=== PATIENT | male | born 1930 | race Caucasian/White ===

== ENCOUNTER → 2016-04-13 | Outpatient (CLI) | payer OTHER ==
--- NOTE | 2016-04-13 19:10 | DX ---
DEXA Bone Mineral Densitometry Indication: 86-year-old man with history of low bone mineral density. The patient currently takes o steoporosis medication. Technique: Bone Mineral Densitometry (BMD) by Dual Energy X-Ray Absorptiometry (DEXA) was performed utilizing the kwiry scanner. The lumbar spine was evaluated in the AP projection. The bilat eral hips and right forearm were evaluated in the AP projection. Vertebral fracture assessment was a lso performed. Comparison: September 12, 2013. AP Lumbar Spine: The L1, L2, L3, and L4 vertebral bodies were evaluated. BMD: 1.444 gm/cm2. T-score: 1.7 SD. Z-score: 2.5 SD. Increased density. AP Left Hip: Total BMD: 0.950 gm/cm2. T-score: -1.1 SD. Z-score: 0.3 SD. Increased density. AP Right Hip: Total BMD: 0.982 gm/cm2. T-score: -0.8 SD. Z-score: 0.5 SD. Increased density. AP Right Forearm, 03/23: BMD: 1.007 gm/cm2. T-score: 0.2 SD. Z-score: 1.5 SD. No change. Vertebral Fracture Assessment: No significant fracture deformity .Degenerative disk and facet arthr opathy artificially increases the BMD measurement in the lumbar spine. Conclusion: Improved bone mineral density in bilateral hips and lumbar spine since 2013. Based on t he lowest density in the left hip, the patient remains in the low bone mineral density (osteopenic) r ambar. The ten year risk for any major osteoporotic fracture is 9.7% and for a hip fracture is 3.4%. Any bone loss in this patient is probably related to aging or hormone deficiency. To prevent osteoporosis and to promote bone density, consider the following recommendations: 1. Pursue a regular regimen of weightbearing and muscle-strengthening exercises in order to reduce t he risk of falls and fracture (as tolerated by the patient's general medical condition). 2. Ensure that total daily dietary calcium intake is maximized. 3. Check serum hydroxy vitamin D3 (normal >30ng/ml). 4. Ensure daily intake of vitamin D is 800 international units. 5. Consider follow up DEXA scan in two years to assess the rate of bone loss in this patient. 6. Consider excluding common secondary causes of bone loss. Laboratory evaluation might include CBC , TSH, calcium, phosphorous, albumin, creatinine, alkaline phosphatase, PTH, serum, electrophoresis ( SPEP or UPEP), antitissue transglutaminase antibody levels (celiac disease), and hydroxy vitamin D3, as well as a 24-hour urine calcium. E:amm
== END ==
LOC: FIMAGING 14:48
PROVIDERS: ATTEND Internal Medicine
DX: Z13.820 Encounter for screening for osteoporosis (principal); M85.80 Other specified disorders of bone density and structure, unspecified site; M51.36 Other intervertebral disc degeneration, lumbar region; M12.88 Other specific arthropathies, not elsewhere classified, other specified site

== ENCOUNTER → 2016-07-13 | Outpatient (CLI) | payer OTHER | LOC: FCPNEURO 21:00 | PROVIDERS: ATTEND Psychiatry & Neurology Sleep Medicine | DX: G47.33 Obstructive sleep apnea (adult) (pediatric) (principal) ==

== ENCOUNTER → 2017-08-20 | Outpatient (CLI) | payer OTHER | LOC: FCPNEURO 20:00 | PROVIDERS: ATTEND Psychiatry & Neurology Sleep Medicine | DX: Z46.89 Encounter for fitting and adjustment of other specified devices (principal); G47.33 Obstructive sleep apnea (adult) (pediatric); G47.61 Periodic limb movement disorder ==

== ENCOUNTER → 2018-05-06 | Outpatient (CLI) | payer OTHER | LOC: FCPNEURO 20:00 ==

== ENCOUNTER 2018-06-15 21:01 | Inpatient (IN) | payer OTHER ==
--- NOTE | 2018-06-15 21:33 | EDPHY ---
General Time Seen by Provider: 06/15/18 21:32 Narrative: CLINICAL IMPRESSION: Multiple contusions, multiple rib fractures, multiple compression fractures, multiple transverse process fractures, left forearm laceration, right hand skin tear ASSESSMENT/PLAN: Patient is an 88-year-old male who is present with his , lives independently at [facility] with a history of pulmonary fibrosis, spinal stenosis with neuropathy, chronic bowel and bladder incontinence, atrial fibrillation on Pradaxa, depression and mild cognitive impairment presents to the emergency department after sustaining multiple mechanical falls complaining of rib pain, forearm laceration and left hand skin tear. Patient arrived by ambulance, he is not toxic appearing and in no acute distress. His lungs were clear to auscultation, physical examination reveals large area of ecchymosis on the left posterior thorax, ecchymosis of right flank extending into the abdomen , 3 cm left forearm laceration and right hand skin tear. Chest abdomen and pelvis CT were performed which revealed posterior 11th and 12th rib fractures of the left side, right 10th rib fracture, nondisplaced fracture of the left transverse processes of L1 and L2 and both transverse process of L3; mild anterior wedge compression deformity of T12 and L5. History and physical examination is consistent with multiple acute rib fractures , multiple compression and transverse process fractures with question of acute versus subacute (baseline pain/unchanged), left forearm laceration and right hand skin tear. His laceration was repaired as discussed in the procedure note. Lidocaine patches were placed in the emergency department, patient declined any need for narcotic pain medication. Patient will be admitted for further observation and pain management, I spoke directly with Dr. Mckay and Dr. Pires. The patient will be admitted to the hospitalist service with trauma consultation. He remained hemodynamically stable prior tp transfer to the floor. DIFFERENTIAL DX: Differential diagnosis including but not limited to thoracic trauma, intra- abdominal trauma, long bone injury, laceration, compartment syndrome, neurovascular compromise ED PROCEDURES: Laceration Repair Verbal consent obtained by patient. Risks discussed, including but not limited to infection, pain, retained foreign body, need for additional repair, poor cosmetic result, tendon damage, nerve damage, poor wound healing, vascular damage. Alternatives to repair discussed. [place] protocol used to establish correct patient, procedure, equipment, logistics support, and site. Anesthesia obtained by local infiltration. Anesthetized with 1% lidocaine with epinephrine. Laceration 1.: Left forearm, 3 cm in length, 5 mm deep. Skin tear 2.5 cm superficially on the dorsum of the right hand. Repair type simple. Patient was prepped and draped in usual sterile fashion. Hemostasis achieved with direct pressure. Wound explored through full range of motion and entire depth of wound probed and visualized with gloved finger. No suspicion for nerve damage, tendon damage, underlying fracture, vascular damage, foreign body, or contamination. Area was cleansed with Shur-Clens and irrigated with sterile saline as per protocol. No foreign body or material removed. Repair method 5.0 Prolene interrupted. The skin tear was reapproximated and secured with Steri-Strips. 8 sutures placed. Well aligned, closely approximated. wound was dressed with sterile dressing. Patient tolerated well with no immediate complications. Wound care: Clean and dry x 24 hours, gently clean with soap and water, cover with topical antibiotic ointment/bandage. Suture/Staple removal: 7-10 Days ED COURSE: 5: Case discussed with Dr. Jackson 2312: Case discussed with radiologist Dr. Zamudio. Patient with multiple positive findings including left 11th and 12th posterior rib fractures, right 10th rib fracture as well as T12 and L5 increase in appearance of compression fractures. There is some stranding along the right abdomen consistent with area of right 10th rib fracture, no other intra-abdominal traumatic findings. 0023: Dr. Leblanc discussed case with Dr. Mckay, appropriate for medicine admit and Trauma consultation. CHIEF COMPLAINT: Left forearm laceration, left hand skin tear HPI: Patient is an 88-year-old male who is present with his , lives independently at [facility] with a history of pulmonary fibrosis, spinal stenosis with neuropathy, chronic bowel and bladder incontinence, atrial fibrillation on Pradaxa, depression and mild cognitive impairment presents to the emergency department after sustaining a mechanical fall with laceration to his forearm and skin tear to his right hand. Patient and endorse increasing falls over the last several months, recently transitioned to [facility] independent living from their home secondary to increased falls. Patient was using his walker this evening when he lost his balance causing him to fall backwards, he hit his arm on the door and landed onto his buttocks. Patient denies hitting his head, there was no loss of consciousness. He denies any neck pain. does report frequent falls, last fall 4 days ago where he was not seen or evaluated for any reason. At that time he hit his back and right flank during his fall, limited mobility throughout the week secondary to his pain. He reports that his pain is getting better however he does have some significant bruising. Patient has longstanding back pain secondary to spinal stenosis, denies any new or change in his back pain. He endorses chronic bowel and bladder incontinence which is unchanged. Denies any urinary tension, saddle paresthesia or focal weakness. Patient complains only of left forearm pain at the site of his laceration. Patient also endorse recent MRSA infection of his left lower extremity which is followed by infectious disease, nearly finished with antibiotic therapy. No wound concerns. PMH: Pulmonary fibrosis, spinal stenosis, atrial fibrillation Family History: Noncontributory Social History: Denies alcohol, illicit drug use or smoking REVIEW OF SYSTEMS: All other systems negative Constitutional: No fever, no chills, appetite change. Eyes: No discharge, vision change ENT: No sore throat, congestion, ear pain. Cardiovascular: No chest pain, no palpitations. Respiratory: No cough, no shortness of breath. Gastrointestinal: No abdominal pain, no vomiting, diarrhea. Genitourinary: No hematuria, dysuria, flank pain. Musculoskeletal: Bilateral posterior rib pain, right flank pain, Chronic back pain, chronic leg pain Skin: Abrasions, bruising, laceration. Healing wound left lower extremity. Neurological: No headache, dizziness, weakness. PHYSICAL EXAM: General Appearance: Alert, elderly, not toxic-appearing. HENT: Normocephalic, atraumatic. Bilateral external ears are normal. Bilateral tympanic membranes are normal with pearly hurtado reflex. Nares are clear, mucosa is pink. Oropharynx is clear, uvula is midline. There is no tonsillar enlargement or exudate. The dentition is normal. Eyes: PERRLA, EOMI intact. Conjunctiva pink, no pallor or injection. Neck: Supple, nontender, no lymphadenopathy, no midline pain, FROM. Back: No step-off, palpable bony abnormality. Patient with large area of ecchymosis left lateral thoracic region with multiple central abrasions. Patient with tenderness to palpation along the inferior ribs. Patient with mild generalized midline lumbar tenderness to palpation, no step-off or deformity. Patient reports his pain is at his baseline. Limited range of motion secondary to pain. 5/5 and equal strength of the UEs bilaterally including shoulder shrug; LLE mildly weak in comparison. Pulses: 2+ and equal radial, DP and PT pulses bilaterally. Sensation intact and symmetric to light touch from face, UEs and LEs bilaterally. Respiratory: There are no retractions, lungs are clear to auscultation. Cardiac: Regular rate, no murmurs or gallops. Gastrointestinal: Large area of ecchymosis extending right upper quadrant into flank various stages of healing. His abdomen is soft, nontender to palpation. Bowel sounds are present. There are no masses or hernias appreciated. No focal peritoneal findings. Neurological: Alert and oriented x 3, CN 2-12 grossly intact, mild resting tremor, mild diminished strength LLE Skin: Warm, dry. Musculoskeletal: Extremities are symmetrical, full range of motion, no tenderness, deformity, swelling, or erythema. Psychiatric: Patient is oriented X 3, there is no agitation. MEDICAL DECISION MAKING: Patient was seen independently. Secondary supervising physician at time of evaluation was Dr. Jackson and Dr. Leblanc. Diagnosis: Fall, left forearm laceration, right hand skin tear, multiple closed rib fractures, multiple compression fractures, multiple transverse process fractures. New, requires workup Summary: See Assessment and Plan for summary of ED visit Clinical lab tests: ordered / reviewed. Independent visualization of images, tracing, or specimens: Yes. Decision to obtain medical records or history from someone other than the patient: Yes, Review / Summarize previous medical records: Yes Discussed patient with another provider: Yes, Dr. Jackson, Dr. Leblanc, Dr. Mckay, Dr. Yap Patient Progress: Stable, admit. - Diagnostics Imaging Results: Imaging Impressions Abdomen CT 06/15/18 22:01 Impression: 1. Nondisplaced fracture of the left transverse processes of L1 and L2 and both transverse process of L3. No evidence for retroperitoneal hematoma. 2. Mild anterior wedge compression deformity of T12 and L5 new over the interval from 2016 but have a more chronic appearance as above. 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 3. Left posterior 11th and 12th rib fractures and right 10th rib fracture. 4. Other chronic findings as above. CT chest with IV contrast. History: Trauma. Fall. Comparison: Chest CT July 2014. Technique: 1.5 mm helical images were obtained the chest from lung apices through the lung bases. This was done posterior views contrast with 99 mL Isovue -300 contrast. Multiplanar reformation was performed. Radiation dose reduction technique was utilized. Findings: Multiple old healed rib fractures are seen bilateral. There is be acute minimally displaced fracture of the right lateral 10th rib. Mildly displaced posterior 11th and 12th rib fractures are visualized which appear acute. No evidence for pleural effusion or pneumothorax. There is evidence of underlying interstitial lung disease with peripheral intralobular and interlobular septal thickening and some peripheral honeycombing bilateral which is increased over the interval. Traction bronchiectasis is seen in the periphery bilateral which is also increased. There is a new mass or scar laterally in the right midlung long the major fissure measuring 18 x 21 mm extending to the pleura. Calcifications are seen in the mediastinal or hilar lymph nodes suggesting old granulomatous disease. Coronary artery calcifications are visualized. Heart size is within normal limits. No evidence for pericardial effusion. Multilevel degenerative changes seen in the thoracic spine. Increasing anterior wedge compression deformity seen of T12 with a chronic appearance and sclerosis. Impression: 1. Acute posterior left 11th and 12th rib fractures and right 10th rib fractures. Prior old healed rib fractures bilateral. No evidence for pleural effusion or pneumothorax. 2. Evidence of underlying interstitial lung disease which progressed over the interval. There is a new mass or scar laterally in the right midlung along the major fissure extending to the pleura. Consider pulmonology consultation and PET scan. 3. Evidence of prior granulomatous disease. 4. Coronary artery calcifications. 5. Other chronic findings as above. Results called and discussed with JUNIOR Méndez at 06/15/2018 23:16. Chest CT 06/15/18 22:01 Impression: 1. Nondisplaced fracture of the left transverse processes of L1 and L2 and both transverse process of L3. No evidence for retroperitoneal hematoma. 2. Mild anterior wedge compression deformity of T12 and L5 new over the interval from 2016 but have a more chronic appearance as above. 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 3. Left posterior 11th and 12th rib fractures and right 10th rib fracture. 4. Other chronic findings as above. CT chest with IV contrast. History: Trauma. Fall. Comparison: Chest CT July 2014. Technique: 1.5 mm helical images were obtained the chest from lung apices through the lung bases. This was done posterior views contrast with 99 mL Isovue -300 contrast. Multiplanar reformation was performed. Radiation dose reduction technique was utilized. Findings: Multiple old healed rib fractures are seen bilateral. There is be acute minimally displaced fracture of the right lateral 10th rib. Mildly displaced posterior 11th and 12th rib fractures are visualized which appear acute. No evidence for pleural effusion or pneumothorax. There is evidence of underlying interstitial lung disease with peripheral intralobular and interlobular septal thickening and some peripheral honeycombing bilateral which is increased over the interval. Traction bronchiectasis is seen in the periphery bilateral which is also increased. There is a new mass or scar laterally in the right midlung long the major fissure measuring 18 x 21 mm extending to the pleura. Calcifications are seen in the mediastinal or hilar lymph nodes suggesting old granulomatous disease. Coronary artery calcifications are visualized. Heart size is within normal limits. No evidence for pericardial effusion. Multilevel degenerative changes seen in the thoracic spine. Increasing anterior wedge compression deformity seen of T12 with a chronic appearance and sclerosis. Impression: 1. Acute posterior left 11th and 12th rib fractures and right 10th rib fractures. Prior old healed rib fractures bilateral. No evidence for pleural effusion or pneumothorax. 2. Evidence of underlying interstitial lung disease which progressed over the interval. There is a new mass or scar laterally in the right midlung along the major fissure extending to the pleura. Consider pulmonology consultation and PET scan. 3. Evidence of prior granulomatous disease. 4. Coronary artery calcifications. 5. Other chronic findings as above. Results called and discussed with JUNIOR Méndez at 06/15/2018 23:16. - History Smoking Status: Never smoked - Objective Vital Signs: Initial Vital Signs Temperature (C) 36.7 C 06/15/18 21:07 Heart Rate 82 06/15/18 21:07 Respiratory Rate 16 06/15/18 21:07 Blood Pressure 150/67 H 06/15/18 21:07 O2 Sat (%) 91 L 06/15/18 21:07 O2 Delivery Mode Room Air Allergies/Adverse Reactions: clindamycin Allergy (Mild, Verified 06/15/18 21:10) localized rash amiodarone Allergy (Verified 06/15/18 21:10) lisinopril Allergy (Verified 06/15/18 21:10) Home Medications: Medication Instructions Recorded Atorvastatin Calcium [Lipitor 20 20 mg PO HS 09/11/12 mg (*)] Dabigatran Etexilate Mesyl 150 mg PO BID 11/07/13 [Pradaxa 150 MG (*)] Finasteride [Proscar 5 MG (*)] 5 mg PO DAILY 11/07/13 Herbals/Supplements -Info Only 1 ea PO DAILY 10/10/15 Lisinopril [Zestril 10 mg (*)] 10 mg PO DAILY 10/10/15 TROSPIUM CHLORIDE [SANCTURA] 20 mg PO BID 10/10/15 Laboratory Results: 06/15/18 22:08 POC Hgb 13.3 gm/dL L gm/dL (13.7-17.5) POC Hct 39 % L % (40-51) POC Sodium 138 mEq/L mEq/L (135-145) POC Potassium 4.1 mEq/L mEq/L (3.3-5.0) POC Chloride 100 mEq/L mEq/L (97-110) POC Total CO2 26 mEq/L mEq/L (22-31) POC BUN 18 mg/dL mg/dL (7-23) POC Creatinine 0.9 mg/dL mg/dL (0.7-1.3) POC Glucose 153 mg/dL H mg/dL (70-100) Medications Given: Discontinued Medications Miscellaneous Medication (Icy Hot Lidocaine/Menthol 4%/1% Patch) 2 patch TD EDNOW ONE Stop: 06/15/18 23:47 Last Admin: 06/16/18 00:06 Dose: 2 patch Point of Care Test Results: Chemistry 06/15/18 22:08 POC Sodium 138 mEq/L mEq/L (135-145) POC Potassium 4.1 mEq/L mEq/L (3.3-5.0) POC Chloride 100 mEq/L mEq/L (97-110) POC Total CO2 26 mEq/L mEq/L (22-31) POC BUN 18 mg/dL mg/dL (7-23) POC Creatinine 0.9 mg/dL mg/dL (0.7-1.3) POC Glucose 153 mg/dL H mg/dL (70-100) ISTAT H&H 06/15/18 22:08 POC Hgb 13.3 gm/dL L gm/dL (13.7-17.5) POC Hct 39 % L % (40-51) Departure - Departure Disposition: [facility] Inpatient Acute Clinical Impression: Fracture of vertebra, compression Multiple rib fractures Qualifiers: Encounter type: initial encounter Fracture type: closed Laterality: bilateral Qualified Code(s): S22.43XA - Multiple fractures of ribs, bilateral, initial encounter for closed fracture Forearm laceration Qualifiers: Encounter type: initial encounter Laterality: left Qualified Code(s): S51.812A - Laceration without foreign body of left forearm, initial encounter Skin tear of right hand without complication Qualifiers: Encounter type: initial encounter Qualified Code(s): S61.411A - Laceration without foreign body of right hand, initial encounter Fracture of transverse process of lumbar vertebra Qualifiers: Encounter type: initial encounter Fracture type: closed Qualified Code(s): S32.009A - Unspecified fracture of unspecified lumbar vertebra, initial encounter for closed fracture Referrals: Chapito Salinas MD [Medical Doctor] - As per Instructions
[2018-06-15] MEDS ORDERED: IOPAMIDOL (ISOVUE-300) 100 ML BTL ONE (22:18)
[2018-06-15] MEDS ORDERED: LIDOCAINE 4%/MENTHOL 1% PATCH TD ONE (23:46)
[2018-06-16] MEDS ORDERED: ONDANSETRON DISINTEGRATING 4 MG TAB PO PRN ×2 (00:24→06:18)
[2018-06-16] MEDS ORDERED: ONDANSETRON 4 MG/2 ML VIAL IVP PRN ×2 (00:24→06:18)
[2018-06-16] MEDS ORDERED: oxyCODONE IR 5 MG TAB PO PRN (00:24)
--- NOTE | 2018-06-16 00:45 | PDGENHP ---
History and Physical - Chief Complaint Fall - History of Present Illness 88 yo M w/ AF, spinal stenosis, osteoporosis, HTN, and BPH presents with numerous falls. The patient and his tell me he has suffered at least 8 falls in the last 8 month. Today he states he lost balance and fell backwards. He is anticoagulated with dabigatran for hx of AF. He denies head trauma. Falls have been a significant for several months. He and his moved to the independent living section of [facility] in March for this reason. Today his work-up is notable for multiple rib fractures and vertebral fractures. These fractures are of varying acuity. Today his main injury was to his L forearm. He has also been on antibiotics for LLE infection recently. Today he denies symptoms aside from rib pain from a fall on Tuesday. Case discussed with ED physician Dr. Leblanc; records reviewed and summarized above. History Information - Allergies/Home Medication List Allergies/Adverse Reactions: clindamycin Allergy (Mild, Verified 06/15/18 21:10) localized rash amiodarone Allergy (Verified 06/15/18 21:10) lisinopril Allergy (Verified 06/15/18 21:10) Home Medications: Atorvastatin Calcium [Lipitor 20 mg (*)] 20 mg PO HS 09/11/12 [Last Taken ] Dabigatran Etexilate Mesyl [Pradaxa 150 MG (*)] 150 mg PO BID 11/07/13 [Last Taken 01/02/14 09:00] Finasteride [Proscar 5 MG (*)] 5 mg PO DAILY 11/07/13 [Last Taken 01/02/14] Herbals/Supplements -Info Only 1 ea PO DAILY 10/10/15 [Last Taken Unknown] Lisinopril [Zestril 10 mg (*)] 10 mg PO DAILY 10/10/15 [Last Taken Unknown] TROSPIUM CHLORIDE [SANCTURA] 20 mg PO BID 10/10/15 [Last Taken Unknown] I have personally reviewed and updated: family history, medical history - Past Medical History CVA, hypertension Additional medical history: Spinal stenosis. Peripheral neuropathy. Osteoporosis. BPH - Surgical History Additional surgical history: Diaphragm surgery - Family History Additional family history: Denies family hx of movement disorders - Social History Smoking Status: Never smoked Review of Systems Review of Systems: ROS: 10pt was reviewed & negative except for what was stated in HPI & below Physical Exam Physical Exam: Temp Pulse Resp BP Pulse Ox 36.7 C 72 18 143/82 H 91 L 06/15/18 21:07 06/16/18 00:00 06/16/18 00:00 06/16/18 00:00 06/16/18 00:00 Constitutional: no apparent distress, chronically ill appearing Eyes: PERRL, EOMI Ears, Nose, Mouth, Throat: moist mucous membranes, no oral mucosal ulcers Cardiovascular: regular rate and rhythym, systolic murmur Respiratory: no respiratory distress, clear to auscultation Gastrointestinal: normoactive bowel sounds, soft, non-tender abdomen Skin: warm, other (Scattered ecchymoses) Musculoskeletal: full muscle strength, no joint effusions Neurologic: AAOx3, CN II-XII Intact Psychiatric: interacting appropriately, not anxious Lab Data & Imaging Review POC Hgb 13.3 gm/dL (13.7-17.5) L 06/15/18 22:08 POC Hct 39 % (40-51) L 06/15/18 22:08 POC Sodium 138 mEq/L (135-145) 06/15/18 22:08 POC Potassium 4.1 mEq/L (3.3-5.0) 06/15/18 22:08 POC Chloride 100 mEq/L (97-110) 06/15/18 22:08 POC Total CO2 26 mEq/L (22-31) 06/15/18 22:08 POC BUN 18 mg/dL (7-23) 06/15/18 22:08 POC Creatinine 0.9 mg/dL (0.7-1.3) 06/15/18 22:08 POC Glucose 153 mg/dL (70-100) H 06/15/18 22:08 Imaging Review: Imaging Impressions Abdomen CT 06/15/18 22:01 Impression: 1. Nondisplaced fracture of the left transverse processes of L1 and L2 and both transverse process of L3. No evidence for retroperitoneal hematoma. 2. Mild anterior wedge compression deformity of T12 and L5 new over the interval from 2015 but have a more chronic appearance as above. 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 3. Left posterior 11th and 12th rib fractures and right 10th rib fracture. 4. Other chronic findings as above. CT chest with IV contrast. History: Trauma. Fall. Comparison: Chest CT July 2014. Technique: 1.5 mm helical images were obtained the chest from lung apices through the lung bases. This was done posterior views contrast with 99 mL Isovue -300 contrast. Multiplanar reformation was performed. Radiation dose reduction technique was utilized. Findings: Multiple old healed rib fractures are seen bilateral. There is be acute minimally displaced fracture of the right lateral 10th rib. Mildly displaced posterior 11th and 12th rib fractures are visualized which appear acute. No evidence for pleural effusion or pneumothorax. There is evidence of underlying interstitial lung disease with peripheral intralobular and interlobular septal thickening and some peripheral honeycombing bilateral which is increased over the interval. Traction bronchiectasis is seen in the periphery bilateral which is also increased. There is a new mass or scar laterally in the right midlung long the major fissure measuring 18 x 21 mm extending to the pleura. Calcifications are seen in the mediastinal or hilar lymph nodes suggesting old granulomatous disease. Coronary artery calcifications are visualized. Heart size is within normal limits. No evidence for pericardial effusion. Multilevel degenerative changes seen in the thoracic spine. Increasing anterior wedge compression deformity seen of T12 with a chronic appearance and sclerosis. Impression: 1. Acute posterior left 11th and 12th rib fractures and right 10th rib fractures. Prior old healed rib fractures bilateral. No evidence for pleural effusion or pneumothorax. 2. Evidence of underlying interstitial lung disease which progressed over the interval. There is a new mass or scar laterally in the right midlung along the major fissure extending to the pleura. Consider pulmonology consultation and PET scan. 3. Evidence of prior granulomatous disease. 4. Coronary artery calcifications. 5. Other chronic findings as above. Results called and discussed with JUNIOR Méndez at 06/15/2018 23:16. Chest CT 06/15/18 22:01 Impression: 1. Nondisplaced fracture of the left transverse processes of L1 and L2 and both transverse process of L3. No evidence for retroperitoneal hematoma. 2. Mild anterior wedge compression deformity of T12 and L5 new over the interval from 2016 but have a more chronic appearance as above. 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 3. Left posterior 11th and 12th rib fractures and right 10th rib fracture. 4. Other chronic findings as above. CT chest with IV contrast. History: Trauma. Fall. Comparison: Chest CT July 2014. Technique: 1.5 mm helical images were obtained the chest from lung apices through the lung bases. This was done posterior views contrast with 99 mL Isovue -300 contrast. Multiplanar reformation was performed. Radiation dose reduction technique was utilized. Findings: Multiple old healed rib fractures are seen bilateral. There is be acute minimally displaced fracture of the right lateral 10th rib. Mildly displaced posterior 11th and 12th rib fractures are visualized which appear acute. No evidence for pleural effusion or pneumothorax. There is evidence of underlying interstitial lung disease with peripheral intralobular and interlobular septal thickening and some peripheral honeycombing bilateral which is increased over the interval. Traction bronchiectasis is seen in the periphery bilateral which is also increased. There is a new mass or scar laterally in the right midlung long the major fissure measuring 18 x 21 mm extending to the pleura. Calcifications are seen in the mediastinal or hilar lymph nodes suggesting old granulomatous disease. Coronary artery calcifications are visualized. Heart size is within normal limits. No evidence for pericardial effusion. Multilevel degenerative changes seen in the thoracic spine. Increasing anterior wedge compression deformity seen of T12 with a chronic appearance and sclerosis. Impression: 1. Acute posterior left 11th and 12th rib fractures and right 10th rib fractures. Prior old healed rib fractures bilateral. No evidence for pleural effusion or pneumothorax. 2. Evidence of underlying interstitial lung disease which progressed over the interval. There is a new mass or scar laterally in the right midlung along the major fissure extending to the pleura. Consider pulmonology consultation and PET scan. 3. Evidence of prior granulomatous disease. 4. Coronary artery calcifications. 5. Other chronic findings as above. Results called and discussed with JUNIOR Méndez at 06/15/2018 23:16. Assessment & Plan Assessment: 88 yo M w/ hx of AF, ILD, CVA, peripheral neuropathy, spinal stenosis, and BPH presents after numerous falls. Plan: 1. Falls - This is a chronic issue for this patient. His reports at least 8 falls in the last months resulting in numerous injuries. He has numerous risk factors for falls including hx CVA, peripheral neuropathy, debilitation, and spinal stenosis. He also has an upper extremity tremor so early movement disorder is also possible. - Admit for observation - PT/OT evaluations - PM&R doctor recommended spinal MRI, consider this while inpatient - Likely appropriate to discontinue dabigatran 2. Rib fractures - Left posterior 11th and 12th rib fractures and right 10th rib fracture noted on imaging. - Trauma consult placed - Pain control - Incentive spirometry 3. Vertebral fractures - CT demonstrates nondisplaced fracture of the left transverse processes of L1 and L2 and both transverse process of L3. Mild anterior wedge compression deformity of T12 and L5 new over the interval from 2016 but have a more chronic appearance. - Trauma consulted - Patient states he stopped Fosamax about 1 year ago; consider revisiting osteoporosis treatment 4. Spinal stenosis - Likely contributing to falls 5. Peripheral neuropathy - Unclear etiology for this 6. ILD - On room air 7. AF - On dabigatran, likely reasonable to discontinue this noting ongoing falls. - Monitor on telemetry 8. Hx CVA - With mild L leg weakness. Diet - Regular Code - Full Ppx - SCDs Dispo - Admit under observation status
[2018-06-16] MEDS: ACETAMINOPHEN 500 MG TAB PO PRN ×3 (01:40→22:07)
[2018-06-16 05:13] LABS: PLATELET COUNT 222 10^3/uL (150-400)
[2018-06-16] MEDS ORDERED: HYDROmorphONE/DILAUDID 1 MG/ML INJ IVP PRN (06:18)
[2018-06-16] MEDS ORDERED: HYDROCODONE/APAP 5/325 TAB PO PRN (06:18)
[2018-06-16] MEDS ORDERED: D5W 1/2 NS W/ 20 KCl/L 1,000 ML IV SCH (06:30)
--- NOTE | 2018-06-16 06:32 | SOAPPROG ---
SOAP Progress Note Assessment/Plan: Assessment: 88 male with recurrent falls presents with bilat rib fxs without complications/ also tp fxs l1-3/ also t12 and l5 compression fxs of uncertain age on pradaxa for afib vs stable/ afebrile heent without trauma, perrla, occlusion ok, no nodes chest clear and symmetric, tender over posterior lower ribs bilat abd soft nontender pelvis intact, nontender back completely nontender extrem full plses, full rom neuro symmetric and physiologic impr: mutiple rib fxs, tp fxs, subacute compession fxs Plan:admit for obs, pain control, med eval for recurrent falls, ? NS consult 06/16/18 06:25 Objective: Vital Signs Temp Pulse Resp BP Pulse Ox 36.6 C 61 18 127/70 H 96 06/16/18 05:22 06/16/18 05:22 06/16/18 05:22 06/16/18 05:22 06/16/18 05:22 Laboratory Results 06/16/18 04:39 06/16/18 04:39 06/15/18 06/16/18 06/17/18 05:59 05:59 05:59 Intake Total 50 Output Total 475 Balance -425 ICD10 Worksheet Patient Problems: Problems Problem Status Onset Forearm laceration Acute Fracture of transverse process of lumbar vertebra Acute Fracture of vertebra, compression Acute Multiple rib fractures Acute Skin tear of right hand without complication Acute Cellulitis Acute
[2018-06-16 08:43] LABS: PLATELET COUNT 208 10^3/uL (150-400)
[2018-06-16] MEDS ORDERED: PATCH REMOVAL 1 EA PATCH TD ONE (09:00)
--- NOTE | 2018-06-16 11:17 | GHP ---
[f rep st] PREOP HISTORY AND PHYSICAL DATE OF ADMISSION: 06/16/2018 HISTORY OF PRESENT ILLNESS: The patient is an 88-year-old male who lives at [facility] to the ER after a fall. He apparently has been having recurrent falls recently. He is on Pradaxa for Afib. He is admitted at this time for pain control. He sustained bilateral rib fractures, which are nondisplaced with no obvious pneumo or bleeding. He has some other findings on CT scans includi ng multiple transverse process fractures and some compression fractures at L5 and T12 which are indet erminate age. He has no back pain at all. He does complain of pain over his rib fractures. He is a dmitted at this time for observation, pain control, and workup for his recurrent falls. He also had a laceration repaired on his left arm. REVIEW OF SYSTEMS: Negative except as related to the HPI and past history in a full 10-point review. Reveals he does have fecal and urinary incontinence. PAST MEDICAL HISTORY: Includes pulmonary fibrosis, history of spinal stenosis, atrial fibrillation. FAMILY HISTORY: Noncontributory. SOCIAL HISTORY: Reveals he does not smoke. ALLERGIES: Clindamycin, amiodarone, and lisinopril. PRESENT MEDICATIONS: Lipitor, Pradaxa, Proscar, Zestril, and trospium chloride. PHYSICAL EXAMINATION: GENERAL: An alert 88-year-old male who is in no acute distress. HEAD AND NEC K: Exam reveals no signs of trauma. He is PERRLA. EOMs are intact. There is no adenopathy, and hi s occlusion is normal. Neck is supple and nontender without bruits or thyromegaly. CHEST: Clear an d symmetric. He does have tenderness to the left posterior lower ribs, as well as on the right side. There is no sternal pain. CARDIAC: Reveals a regular rhythm without murmurs. ABDOMEN: Completel y soft and nontender without masses or hernias. GENITALIA: Normal. PELVIS: Exam reveals his pelvis to be intact and nontender. EXTREMITIES: Reveal full range of motion, full pulses. He has a recen tly sutured 3 cm laceration on the left forearm. IMPRESSION: 1. Multiple bilateral rib fractures. 2. Recurrent falls. 3. Some age-indeterminate compression fractures at T12 and L5, transverse process fractures of L1 th rough L3. PLAN: Admit for observation, possible neurosurgery consultation, and pain control. Risks and option s have been fully discussed and he wishes to proceed. TIME SEEN: The patient was seen at 4 a.m. this morning. /[id number]/MODL
--- NOTE | 2018-06-16 12:15 | ASMTCMCOM ---
CM Note CM Note Notes: Pt was admitted with multiple rib fx and TP fx after a fall. Per his , he has a hx of falls (~8 falls in 8 months). They moved to [facility] in March. Pt is currently on bed rest. A neurology consult and PT/OT evals are pending, [facility] [employer] has cleared. Pt has had [facility] in the past. CM will follow for any d/c needs. D/C plan: TBD Date Signed: 06/16/2018 12:14 PM Electronically Signed By:NICK Smith
--- NOTE | 2018-06-16 12:28 | GCON ---
[f rep st] CONSULTATION REASON FOR CONSULTATION: Finding of compression fracture on CT after fall. HOSPITAL COURSE/HISTORY/MAJOR MEDICAL FINDINGS: The patient is an 88-year-old gentleman who lives at [facility] and presented to the emergency room after a fall. He states that he had some imbala nce and then fell. He is on Pradaxa for atrial fibrillation. He does have a history of lumbar spina l stenosis and is followed by Dr. Velasquez at the [facility] and Dr. Ramos for interventional injectio ns. He had some rib fractures and some multiple transverse process fractures with evidence of L5 and T12 of indeterminate age fractures. The patient states that he has had the T12 and L5 fracture befo re in the past and he is denying any back pain at this time. He does have baseline incontinence of u rinary and stool that has been present for over 4 years. He states this is stable and unchanged. He denies any groin numbness. He does have lower extremity numbness, which has been diagnosed via EMG with peripheral neuropathy. He denies any new weakness. He was admitted to trauma for observation. REVIEW OF SYSTEMS: Review of systems is negative other than what is seen in the HPI. Please see per tinent negatives and positives. PAST MEDICAL HISTORY: Significant for pulmonary fibrosis, history of spinal stenosis, and history of atrial fibrillation on Pradaxa. FAMILY HISTORY: Does have a history of prostate cancer. SOCIAL HISTORY: The patient does drink about a glass of wine on average daily. He does not smoke an y tobacco or use illicit drugs. ALLERGIES: Clindamycin, amiodarone, and lisinopril. HOME MEDICATIONS: Include Lipitor, Pradaxa, Proscar, Zestril, and trospium chloride. PHYSICAL EXAM: VITAL SIGNS: BP is 138/65, his heart rate is 74, he is 90% on room air, temperature is 36. GENERAL: The patient is in no acute distress. NEUROLOGIC: He is alert and oriented x3. He answers all questions appropriately, and his affect is appropriate for the given situation. Cranial nerves 2 through 12 are grossly intact. EOMI and PERRLA. The patient is a 5/5 and equal in his shayla ateral upper and bilateral lower extremities, including his deltoids, triceps, biceps, wrist flexors, extensors, interossei, intrinsic technical architect, iliopsoas, hamstrings, quadriceps, plantar flexion, dorsiflex ion, and EHL. Sensation is intact in bilateral upper, slightly increased in bilateral lower extremit ies consistent with his report of peripheral neuropathy. He has negative clonus, negative Lopez's bilaterally. 2+ patellar reflexes bilaterally. DIAGNOSTIC REVIEW: Patient underwent a CT of the chest, which demonstrated nondisplaced fracture of the left transverse process of L1 and L2 and both transverse processes of L3. There is no evidence o f retroperitoneal hematoma. There is mild anterior wedging deformity of T12 and L5 that had chronic appearing features. He also has multilevel degenerative disk disease and spinal stenosis noted at L4 -5. There was left posterior 11 and 12 rib fractures and a right sided T10 rib fracture. ASSESSMENT/PLAN: The patient is an 88-year-old gentleman who presented to the emergency room after a fall where he had some imbalance. He has known peripheral neuropathy in his feet, as well as spinal stenosis. His imaging did demonstrate some transverse process fractures on the left L1 and L2 and b oth transverse processes at L3, and T12 and L5 compression fractures. The patient currently is not h aving any back pain. Discussed with him that we will order an MRI to determine if there is any acute components to T12 or L5, but at this point in time, given his lack of back pain and his rib fracture s, we would not recommend further bracing. He has known spinal stenosis and is followed by Dr. Velasquez at the [facility] for this, as well as Dr. Ramos, and the patient does not have any acute neurolog ical changes in correspondence to this as well. For his transverse process fractures, this is usuall y not treated in a brace. The patient was seen in conjunction both by Dr. Claudia Bhat and myself th is morning at 7:55 a.m. /[id number]/MODL
--- NOTE | 2018-06-16 14:21 | HOSPPROG ---
Hospitalist Progress Note Assessment/Plan: 88 year old male admitted after suffering multiple falls. 1. Falls -patient and notice that he has become more unsteady over the last year. The patient notes that about 1.5 years ago he stopped playing tennis and thinks that maybe stopping caused increased weakness in his legs and increased unsteadiness. 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 - Admit for observation - PT/OT evaluations - Discussion about anticoagulation 2. Rib fractures - Left posterior 11th and 12th rib fractures and right 10th rib fracture noted on imaging. - Trauma consult placed - Pain control - Incentive spirometry 3. Vertebral fractures - CT demonstrates nondisplaced fracture of the left transverse processes of L1 and L2 and both transverse process of L3. Mild anterior wedge compression deformity of T12 and L5 new over the interval from 2016 but have a more chronic appearance. - Trauma consulted - Patient states he stopped Fosamax about 1 year ago; consider revisiting osteoporosis treatment 4. Spinal stenosis - no new neuropathy or radiculopathy. neurosurgery consulted who does not feel that surgical intervention is warranted. 5. Peripheral neuropathy - Unclear etiology for this 6. ILD - On room air 7. AF - on pradaxa. His CHADSVASC is 5. They have thought about having a watchman device placed in the past. Will cont pradaxa for now. - Monitor on telemetry 8. Hx CVA - With mild L leg weakness. Diet - Regular Code - Full Ppx - SCDs, on pradaxa Dispo - Admit under observation status, will likely need SNF placement. awaiting PT/OT eval Subjective: patient fairly comfortable now. No weakneas of numbness Objective: Vital Signs Temp Pulse Resp BP Pulse Ox 36.9 C 74 18 138/65 H 90 L 06/16/18 08:00 06/16/18 08:00 06/16/18 08:00 06/16/18 08:00 06/16/18 08:00 Laboratory Results 06/16/18 08:30 06/16/18 04:39 06/15/18 06/16/18 06/17/18 05:59 05:59 05:59 Intake Total 50 640 Output Total 475 750 Balance -425 -110 - Physical Exam Constitutional: no apparent distress Eyes: PERRL Ears, Nose, Mouth, Throat: moist mucous membranes Cardiovascular: regular rate and rhythym Respiratory: no respiratory distress Gastrointestinal: normoactive bowel sounds Genitourinary: no bladder fullness Skin: warm Musculoskeletal: generalized weakness Neurologic: AAOx3 Psychiatric: interacting appropriately Lymph, Heme, Immunologic: no cervical LAD ICD10 Worksheet Patient Problems: Problems Problem Status Onset Forearm laceration Acute Fracture of transverse process of lumbar vertebra Acute Fracture of vertebra, compression Acute Multiple rib fractures Acute Skin tear of right hand without complication Acute Cellulitis Acute
[2018-06-16] MEDS: FINASTERIDE 5 MG TAB PO SCH (16:41)
[2018-06-16] MEDS: SERTRALINE HCL 50 MG TAB PO SCH (20:14)
[2018-06-16] MEDS: DABIGATRAN ETEXILATE MESYL 150 MG CAP PO SCH (20:14)
[2018-06-16] MEDS: LOSARTAN POTASSIUM 25 MG TAB PO SCH (20:15)
[2018-06-16] MEDS: MUPIROCIN 2% 22 GM OINT NS SCH (20:17)
[2018-06-16] MEDS: Trospium Chloride [Sanctura] 20 MG PO SCH (20:18)
--- NOTE | 2018-06-16 21:50 | TRAUMAPN ---
Trauma Progress Note Assessment/Plan: 88yo M s/p mech fall c T12, L5 compression fx (likely old) L1-3 TP Fx, R 10th rib fx, L 11-12 rib fx TERTIARY EXAM - VSS, HDs - pain is controlled - exam is nonfocal, he has no back pain and FORBES, will have NSG eval today - HDS - ASHLEY, rib fx protocol. Discussed IS, his main complaint is lower shayla rib pain - activity per NSG - pain control - OK for DC when appropriate per NSG/IM, no new findings on tertiary exam Subjective: feels well, wants to go home Objective: Vital Signs Temp Pulse Resp BP Pulse Ox 37.1 C 78 18 137/69 H 96 06/16/18 19:32 06/16/18 19:32 06/16/18 19:32 06/16/18 20:15 06/16/18 19:32 Laboratory Results 06/16/18 08:30 06/16/18 04:39 06/15/18 06/16/18 06/17/18 05:59 05:59 05:59 Intake Total 50 1640 Output Total 475 1025 Balance -425 615
[2018-06-17] MEDS: ACETAMINOPHEN 500 MG TAB PO PRN ×2 (06:07→17:50)
--- NOTE | 2018-06-17 07:48 | TRAUMAPN ---
Trauma Progress Note - Problem/Surgery Performed (1) Fracture of transverse process of lumbar vertebra Assessment/Plan: Left L1-2 TP fx Bilateral L3 TP fx Qualifiers: Encounter type: initial encounter Fracture type: closed Qualified Code(s) : S32.009A - Unspecified fracture of unspecified lumbar vertebra, initial encounter for closed fracture (2) Fracture of vertebra, compression Assessment/Plan: New T12 and L5 superior endplate compression fxs on MRI prior chronic degenerative changes (3) Multiple rib fractures Assessment/Plan: uncomplicated with associated pain. He actually thinks he broke his 11-12th ribs during a prior fall. Qualifiers: Encounter type: initial encounter Fracture type: closed Laterality: left Qualified Code(s): S22.42XA - Multiple fractures of ribs, left side, initial encounter for closed fracture (4) Loss of balance Assessment/Plan: He feels this is a contributing factor to his recurrent falls/he has developed bilateral lower extremity paresthesias that preceeded this current admission for fall consider Neurology consultation Subjective: resting comfortably/only taking Tylenol for pain Objective: Vital Signs Temp Pulse Resp BP Pulse Ox 36.4 C 71 22 H 147/74 H 95 06/17/18 02:46 06/17/18 02:46 06/17/18 02:46 06/17/18 02:46 06/17/18 02:46 Laboratory Results 06/16/18 08:30 06/16/18 04:39 06/16/18 06/17/18 06/18/18 05:59 05:59 05:59 Intake Total 50 1840 Output Total 475 1250 Balance -425 590 - C-Spine Clearance Cervical Spine Cleared: Yes Physical Exam - Physical Exam General Appearance: alert, no apparent distress Neck: non-tender, supple Respiratory: lungs clear, decreased breath sounds Cardiac/Chest: regular rate, rhythm Abdomen: non-tender, soft Male Genitalia: deferred Rectal: deferred Back: Other (ecchymosis left CVA/flank) Skin: warm/dry, other (dressing left forearm and right wrist dry/intact) Neuro/Psych: normal mood/affect, oriented x 3, sensory deficit (decreased sensation both feet)
[2018-06-17] MEDS: DABIGATRAN ETEXILATE MESYL 150 MG CAP PO SCH ×2 (08:34→20:52)
[2018-06-17] MEDS: FINASTERIDE 5 MG TAB PO SCH (08:34)
[2018-06-17] MEDS ORDERED: FINASTERIDE 5 MG TAB PO SCH (09:00)
[2018-06-17] MEDS ORDERED: Herbals/Supplements -Info Only PO SCH (09:00)
[2018-06-17] MEDS ORDERED: traMADol 50 MG TAB PO PRN (09:09)
--- NOTE | 2018-06-17 10:46 | NEUSURGPN ---
Assessment/Plan: 88 yo male sp fall with subacute to chronic L2, L5, and T12 compression fractures as well as rib fractures. 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 Velasquez for and has not recommended surgery for in the past. He has b/b incontinence that has been persistent and stable x 3-4 years so ti was thought that surgery at this time would not help. Manages leg pain with injections with Dr. Ramos as well. -Neuro: Overall no real change in symptoms from baseline however is having some more left leg pain this morning from hip, down lateral leg to his knee. right leg somewhat weaker than left but no changes from baseline -Spoke with Dr. Núñez about MRI scan as well and we will get flexion/extension films to make sure no instability at L4/5. If so, then there is a possibility that surgery with a laminectomy at L4/5 might help leg pain. Less confident in it helping b/b function at this point but might be worth a try. -Dr. Núñez to stop by and talk with patient later today as well -X-rays flex/ext Lumbar ordered -No brace -PT/OT -Discussed with Dr. Núñez S: Patient denies any back pain, mostly has pain from rib fractures. Also has some left leg pain that is both old and new in that it is more severe than prior to the fall. Objective: NAD, VSS Sitting in chair eating breakfast Awake, alert BUE 5/5 BLE 5/5 except for right leg dorsiflexion/EH 4/5 - this is baseline SILT MS: Non TTP over midline Thoracic and lumbar spine - Physician Discussed Patient with Dr.: Núñez Neurosurgery Physical Exam - Vitals, I&O, Labs I and O 06/16/18 06/17/18 06/18/18 05:59 05:59 05:59 Intake Total 50 1840 Output Total 475 1250 Balance -425 590 Weight 79.379 kg Intake: Oral (ml) 50 1840 Output: Urine (ml) 475 1250 Urinal 475 1250 Other: Intake Quantity Yes Sufficient Number of Voids 1 Diapers/Briefs 1 Urinal 1 Number of Stools Bedpan 1 Vital Signs Temp Pulse Resp BP Pulse Ox 37.0 C 85 22 H 166/77 H 96 06/17/18 08:00 06/17/18 08:00 06/17/18 08:00 06/17/18 08:00 06/17/18 08:00 Laboratory Results 06/16/18 08:30 06/16/18 04:39 ICD10 Worksheet Patient Problems: Problems Problem Status Onset Forearm laceration Acute Fracture of transverse process of lumbar vertebra Acute Fracture of vertebra, compression Acute Loss of balance Acute Multiple rib fractures Acute Skin tear of right hand without complication Acute Cellulitis Acute
[2018-06-17] MEDS: MUPIROCIN 2% 22 GM OINT NS SCH ×2 (11:00→20:52)
[2018-06-17] MEDS: TRIAMCINOLONE 0.1% 15 GM CRTUBE TP SCH (11:00)
[2018-06-17] MEDS: Trospium Chloride [Sanctura] 20 MG PO SCH ×2 (11:00→20:52)
[2018-06-17] MEDS: LIDOCAINE 4%/MENTHOL 1% PATCH TD SCH (11:06)
--- NOTE | 2018-06-17 11:10 | ASMTCMCOM ---
CM Note CM Note Notes: Pt has been evaluated by PT/OT; they have both recommended In-Patient Rehab. An order has been made by Dr Mckay. D/C Plan: Possibly In-Pt Rehab. Date Signed: 06/17/2018 11:09 AM Electronically Signed By:Sheryl Hoang
--- NOTE | 2018-06-17 15:17 | HOSPPROG ---
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 He was also noted to have subacute compression fractures in his back as well as weakness and radicular symptoms stemming from stenosis for which he is followed at [facility] # falls, patient and have noted that he has been more unsteady over the last year and generally uses a 4 wheel walker for ambulation. Despite this he continues to have falls most recently resulting in multiple rib fractures. * Pain control as tolerated * Physical therapy, will need skilled rehab. * Patient and requesting evaluation by [facility] * Continue incentive spirometry # subacute compression fractures noted on MRI scan. Appreciate neurosurgical evaluation and consultation. * Await recommendations by Dr. Núñez however it sounds like his back symptoms have been fairly stable * He is unable to tolerate a brace due to his rib fractures * Previously treated for osteoporosis with spot Fosamax and is currently on a drug holiday. 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 Subjective: Patient new to me and chart reviewed. Continues to have pain on his left ribs but minimal back pain. He is quite unstable with ambulation and continues to work with PT Objective: Vital Signs Temp Pulse Resp BP Pulse Ox 37.0 C 77 18 115/63 91 L 06/17/18 08:00 06/17/18 12:00 06/17/18 12:00 06/17/18 12:00 06/17/18 12:00 Laboratory Results 06/16/18 08:30 06/16/18 04:39 06/16/18 06/17/18 06/18/18 05:59 05:59 05:59 Intake Total 50 1840 Output Total 475 1250 Balance -425 590 - Physical Exam Constitutional: no apparent distress, chronically ill appearing Eyes: PERRL Ears, Nose, Mouth, Throat: moist mucous membranes Cardiovascular: regular rate and rhythym, systolic murmur Respiratory: no respiratory distress, clear to auscultation Gastrointestinal: soft, non-tender abdomen Genitourinary: no bladder fullness Skin: normal color Musculoskeletal: generalized weakness Neurologic: AAOx3 Psychiatric: interacting appropriately ICD10 Worksheet Patient Problems: Problems Problem Status Onset Forearm laceration Acute Fracture of transverse process of lumbar vertebra Acute Fracture of vertebra, compression Acute Loss of balance Acute Multiple rib fractures Acute Skin tear of right hand without complication Acute Cellulitis Acute
[2018-06-17] MEDS: traMADol 50 MG TAB PO PRN (18:02)
[2018-06-17] MEDS: LOSARTAN POTASSIUM 25 MG TAB PO SCH (20:52)
[2018-06-17] MEDS: SERTRALINE HCL 50 MG TAB PO SCH (20:52)
[2018-06-17] MEDS: PATCH REMOVAL 1 EA PATCH TD SCH (20:52)
[2018-06-18] MEDS: traMADol 50 MG TAB PO PRN ×3 (01:38→17:33)
[2018-06-18] MEDS: ACETAMINOPHEN 500 MG TAB PO PRN ×3 (01:39→19:28)
--- NOTE | 2018-06-18 08:40 | TRAUMAPN ---
Trauma Progress Note Assessment/Plan: 88yo M s/p mech fall c T12, L5 compression fx (likely old) L1-3 TP Fx, R 10th rib fx, L 11-12 rib fx - VSS, HDs - pain is controlled - exam is nonfocal, he has no back pain and FORBES, proprioception still minimal - HDS - ASHLEY, rib fx protocol. Discussed IS, his main complaint is lower shayla rib pain - activity per NSG - pain control - NSG has evaluated the patient and discussed options with him. Appears as though the patient has been having longstanding incontinence of bladder and bowel. Currently NSG planning laminectomy later this week Subjective: pain is well controlled, stable on RA Objective: Vital Signs Temp Pulse Resp BP Pulse Ox 36.7 C 91 19 108/62 90 L 06/18/18 07:59 06/18/18 07:59 06/18/18 07:59 06/18/18 07:59 06/18/18 07:59 Laboratory Results 06/16/18 08:30 06/16/18 04:39 06/17/18 06/18/18 06/19/18 05:59 05:59 05:59 Intake Total 1840 1500 Output Total 1250 350 Balance 590 1150 - C-Spine Clearance Cervical Spine Cleared: Yes
[2018-06-18] MEDS: DABIGATRAN ETEXILATE MESYL 150 MG CAP PO SCH ×2 (10:15→20:37)
[2018-06-18] MEDS: FINASTERIDE 5 MG TAB PO SCH (10:15)
[2018-06-18] MEDS: LIDOCAINE 4%/MENTHOL 1% PATCH TD SCH (10:16)
[2018-06-18] MEDS: Trospium Chloride [Sanctura] 20 MG PO SCH ×2 (10:18→20:37)
[2018-06-18] MEDS: MUPIROCIN 2% 22 GM OINT NS SCH ×2 (10:18→20:37)
[2018-06-18] MEDS: TRIAMCINOLONE 0.1% 15 GM CRTUBE TP SCH (10:18)
--- NOTE | 2018-06-18 11:50 | PDMN ---
Medical Necessity Medical necessity: Pt meets IP criteria as of 06/17/[address] [facility] [place] Mus[place] Disease GRG[place] los > 2 mn for ongoing tx and management of multiple rib fractures (L 11th and 12th, R 10th) and multiple vertebral fractures (L1 and L2) s/p fall; requiring pain control, respiratory hygiene, PT/ OT, and neurosurgical consultation; Comorbid advanced age, spinal stenosis, peripheral neuropathy, afib on AC, and CVA.
--- NOTE | 2018-06-18 12:16 | NEUSURGPN ---
Assessment/Plan: 88 yo male sp fall with subacute to chronic L2, L5, and T12 compression fractures as well as rib fractures. 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 Velasquez for and has not recommended surgery for in the past. He has b/b incontinence that has been persistent and stable x 3-4 years so ti was thought that surgery at this time would not help. Manages leg pain with injections with Dr. Ramos as well. -Neuro: Overall no real change in symptoms from baseline however is having some more left leg pain and balance problems. -Dr. Núñez spoke with patient yesterday as well and due to increase in balance problems and leg pain, a lumbar laminectomy for decompression was offered to the patient. It is less likely that this will help his b/b symptoms at this point but may help with his balance. Flexion/ext x-rays showed no instability at L4/5 so lami suggested instead of fusion. He would like to proceed -Hx of pulmonary fibrosis- Will need medicine to help clear for surgery from a pulm standpoint. -If cleared, can likely try for surgery on Tuesday afternoon -No brace -PT/OT -Discussed with Dr. Núñez S: Patient doing well without any new symptoms. Continued rib fracture pain. Would like to proceed with surgery on Tuesday to try and help with balance if he can be cleared to do so. - Physician Discussed Patient with Dr.: Núñez Neurosurgery Physical Exam - Vitals, I&O, Labs I and O 06/17/18 06/18/18 06/19/18 05:59 05:59 05:59 Intake Total 1500 Output Total 350 Balance 1150 Intake: Oral (ml) 1500 Output: Urine (ml) 350 Urinal 350 Other: Number of Voids Diapers/Briefs 2 Toilet 1 Urinal 1 Vital Signs Temp Pulse Resp BP Pulse Ox 36.4 C 83 17 137/82 H 94 06/18/18 11:38 06/18/18 11:38 06/18/18 11:38 06/18/18 11:38 06/18/18 11:38 ICD10 Worksheet Patient Problems: Problems Problem Status Onset Forearm laceration Acute Fracture of transverse process of lumbar vertebra Acute Fracture of vertebra, compression Acute Loss of balance Acute Multiple rib fractures Acute Skin tear of right hand without complication Acute Cellulitis Acute
--- NOTE | 2018-06-18 15:14 | HOSPPROG ---
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 He was also noted to have subacute compression fractures in his back as well as weakness and radicular symptoms stemming from stenosis for which he is followed at [facility]. He has significant balance issues which are likely causing his falls and have been worsening over the last year. NS feels a laminectomy may help his balance. # falls, patient and have noted that he has been more unsteady over the last year and generally uses a 4 wheel walker for ambulation. Despite this he continues to have falls most recently resulting in multiple rib fractures. * Pain control as tolerated * Physical therapy, will need skilled rehab. * Patient and requesting evaluation by [facility] * Continue incentive spirometry # subacute compression fractures noted on MRI scan. Appreciate neurosurgical evaluation and consultation. * He is unable to tolerate a brace due to his rib fractures * Previously treated for osteoporosis with spot Fosamax and is currently on a drug holiday. Unclear if restarting it at this time would be beneficial or not # spinal stenosis: No new neuropathic radicular symptoms, significant stenosis at L4-5. * NS considering Audrey at L4-5 to try and help the balance issues and are requesting pulmonary clearance * Discussed with Dr. Cid secondary to rib fracture of 10,11,12 and ILD, Pt might benefit with more rehab first, but will defer to pulmonary since his pain is currently well controlled and he is on minimal oxygen. Dr. Cid will see patient. # peripheral neuropathy # interstitial lung disease currently on room air prior to his rib fractures. Followed at [facility] by their pulmonologists. 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 Dispo; Pt will need rehab. He is requesting [facility], if he does not qualify then he is requesting [facility] since he is a resident [facility]. Dispo depends on NS, unclear if they are planning on doing surgery this admit or after some rehab. Subjective: Pt pain is better controlled today. on minimal supplemental oxygen. Objective: Vital Signs Temp Pulse Resp BP Pulse Ox 36.4 C 83 17 137/82 H 94 06/18/18 11:38 06/18/18 11:38 06/18/18 11:38 06/18/18 11:38 06/18/18 11:38 06/17/18 06/18/18 06/19/18 05:59 05:59 05:59 Intake Total 1500 Output Total 350 Balance 1150 - Physical Exam Constitutional: uncomfortable Eyes: PERRL Cardiovascular: irregularly irregular Respiratory: no respiratory distress, clear to auscultation, other (tenderness left lower rib) Gastrointestinal: soft, non-tender abdomen Genitourinary: no bladder fullness Skin: normal color Musculoskeletal: generalized weakness Neurologic: AAOx3 Psychiatric: interacting appropriately ICD10 Worksheet Patient Problems: Problems Problem Status Onset Forearm laceration Acute Fracture of transverse process of lumbar vertebra Acute Fracture of vertebra, compression Acute Loss of balance Acute Multiple rib fractures Acute Skin tear of right hand without complication Acute Cellulitis Acute
--- NOTE | 2018-06-18 17:01 | ASMTCMCOM ---
CM Note CM Note Notes: CM discussed case with WILLA Saucedo. Patient pending InPt rehab consult, we are waiting for a response from [facility]. Neurosurgery is recommending surgery after rehab for strengthening CM to follow. D/C Plan: InPt rehab vs. SNF. Date Signed: 06/18/2018 05:00 PM Electronically Signed By:Polly Gann
[2018-06-18] MEDS: LOSARTAN POTASSIUM 25 MG TAB PO SCH (20:37)
[2018-06-18] MEDS: PATCH REMOVAL 1 EA PATCH TD SCH (20:37)
[2018-06-18] MEDS: SERTRALINE HCL 50 MG TAB PO SCH (20:37)
[2018-06-19] MEDS: traMADol 50 MG TAB PO PRN ×3 (04:05→21:51)
[2018-06-19] MEDS: ACETAMINOPHEN 500 MG TAB PO PRN ×2 (04:05→15:18)
[2018-06-19] MEDS: LIDOCAINE 4%/MENTHOL 1% PATCH TD SCH (08:17)
[2018-06-19] MEDS: DABIGATRAN ETEXILATE MESYL 150 MG CAP PO SCH ×2 (08:17→21:34)
[2018-06-19] MEDS: FINASTERIDE 5 MG TAB PO SCH (08:17)
[2018-06-19] MEDS: TRIAMCINOLONE 0.1% 15 GM CRTUBE TP SCH (08:18)
[2018-06-19] MEDS: MUPIROCIN 2% 22 GM OINT NS SCH (08:18)
[2018-06-19] MEDS: Trospium Chloride [Sanctura] 20 MG PO SCH ×2 (08:18→21:35)
--- NOTE | 2018-06-19 08:28 | SOAPPROG ---
SOAP Progress Note Assessment/Plan: Assessment/plan: 88yo M s/p mech fall c T12, L5 compression fx (likely old) L1-3 TP Fx, R 10th rib fx, L 11-12 rib fx Neurosurg planning laminectomy later this week. Activity per nsg. Cough, deep breathe, IS S: Biggest complaint is R rib tenderness. Tolerating regular diet and having bowel function. O: Alert Afebrile, VSS HDS RRR CTAB, no increased WOB Abdomen soft, nontender, normoactive BS Extremities: FORBES Pt seen by Dr. Mckay. 06/19/18 08:24 Objective: Vital Signs Temp Pulse Resp BP Pulse Ox 36.7 C 74 15 141/93 H 90 L 06/19/18 07:16 06/19/18 07:16 06/19/18 07:16 06/19/18 07:16 06/19/18 07:16 06/18/18 06/19/18 06/20/18 05:59 05:59 05:59 Intake Total 1500 1050 Output Total 350 700 Balance 1150 350 ICD10 Worksheet Patient Problems: Problems Problem Status Onset Forearm laceration Acute Fracture of transverse process of lumbar vertebra Acute Fracture of vertebra, compression Acute Loss of balance Acute Multiple rib fractures Acute Skin tear of right hand without complication Acute Cellulitis Acute
[2018-06-19] MEDS ORDERED: ENOXAPARIN 40 MG/0.4 ML SYR SC SCH (09:00)
--- NOTE | 2018-06-19 09:12 | NEUSURGPN ---
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 Velasquez for and has not recommended surgery for in the past. He has b/b incontinence that has been persistent and stable x 3-4 years so ti was thought that surgery at this time would not help. Manages leg pain with injections with Dr. Ramos as well. -Neuro: Overall no real change in symptoms from baseline however is having some more left leg pain and balance problems. -Dr. Núñez spoke with patient Tuesday as well and due to increase in balance problems and leg pain, a lumbar laminectomy for decompression was offered to the patient. It is less likely that this will help his b/b symptoms at this point but may help with his balance. Flexion/ext x-rays showed no instability at L4/5 so lami suggested instead of fusion. He would like to proceed -Hx of pulmonary fibrosis- Will need medicine to help clear for surgery from a pulm standpoint. Per there recommendation, Dr. Cid will see patient to determine if safe to continue with surgery this week. Patient would like to have surgery on this admission if possible. Paradax held fo anticipation fo surgery possibly Tuesday. Patient written for lovenox today. -If cleared, can likely try for surgery on Tuesday afternoon -No brace -PT/OT -Discussed with Dr. Núñez Subjective: Leg weakness worse with walking some left lateral paraspinal pain Objective: NAD A&Ox3 MAEx4 5/5 and equal in BUE and BLE while sitting at rest. - Physician Discussed Patient with : [facility] Physical Exam - Vitals, I&O, Labs I and O 06/18/18 06/19/18 06/20/18 05:59 05:59 05:59 Intake Total 1500 1050 Output Total 350 700 Balance 1150 350 Intake: Oral (ml) 1500 1050 Output: Urine (ml) 350 700 Diapers/Briefs 400 Toilet 150 Urinal 350 150 Other: Number of Voids Diapers/Briefs 2 2 Toilet 1 1 Urinal 1 Number of Stools Toilet 1 Vital Signs Temp Pulse Resp BP Pulse Ox 36.7 C 74 15 141/93 H 90 L 06/19/18 07:16 06/19/18 07:16 06/19/18 07:16 06/19/18 07:16 06/19/18 07:16 ICD10 Worksheet Patient Problems: Problems Problem Status Onset Forearm laceration Acute Fracture of transverse process of lumbar vertebra Acute Fracture of vertebra, compression Acute Loss of balance Acute Multiple rib fractures Acute Skin tear of right hand without complication Acute Cellulitis Acute
--- NOTE | 2018-06-19 13:39 | HOSPPROG ---
Hospitalist Progress Note Assessment/Plan: # falls - needs SNF; need to strongly consider AC in this setting # rib fractures - R 10th, L 11-12th - cont IS - makes surgery a higher risk at this point # L4-5 stenosis - longstanding b/b incontinence - surgery will not be helpful; - given his balance issues, nsg is planning maki; not urgent per nsg, will delay until after snf - f/u dr cancino in 1-2 weeks after dc # peripheral [id number] # ILD - followed at ; makes him slightly higher risk for surgery, but this is not a modifiable risk factor - low normal O2 levels on RA # a-fib on pradaxa - will restart tonight; will need to coordinate with dr cancino when to stop # chronic CVA with L sided weakness - on pradaxa Subjective: discussed with ophelia altamirano and patient; Objective: Vital Signs Temp Pulse Resp BP Pulse Ox 37.2 C 73 16 117/58 L 90 L 06/19/18 12:00 06/19/18 12:00 06/19/18 12:00 06/19/18 12:00 06/19/18 12:00 06/18/18 06/19/18 06/20/18 05:59 05:59 05:59 Intake Total 1500 1050 Output Total 350 700 Balance 1150 350 chart reviewed MRI reviewed - Physical Exam Constitutional: no apparent distress, appears nourished Cardiovascular: regular rate and rhythym, no murmur, rub, or gallop Respiratory: no respiratory distress, inspiratory crackles (mild in bases), No reduced air movement, No respiratory distress, No rhonchi Gastrointestinal: soft, non-tender abdomen, no palpable masses, No guarding, No rebound ICD10 Worksheet Patient Problems: Problems Problem Status Onset Forearm laceration Acute Fracture of transverse process of lumbar vertebra Acute Fracture of vertebra, compression Acute Loss of balance Acute Multiple rib fractures Acute Skin tear of right hand without complication Acute Cellulitis Acute
--- NOTE | 2018-06-19 15:01 | ASMTCMCOM ---
CM Note CM Note Notes: Patient and his Kala decided that they'd like patient to d/c to SNF and have rehab before deciding whether or not to proceed w neurosurgery. toured [facility] and [facility] and chose [facility]. Referral sent and accepted. Anticipate d/c tomorrow, midday ( can be here after 11AM). Case Management will follow. Current CM Discharge plan: [facility] Date Signed: 06/19/2018 03:00 PM Electronically Signed By:Melisa Pratt RN
[2018-06-19] MEDS: SERTRALINE HCL 50 MG TAB PO SCH (21:34)
[2018-06-19] MEDS: DOXYCYCLINE HYCLATE 100 MG CAP/TAB PO SCH (21:34)
[2018-06-19] MEDS: LOSARTAN POTASSIUM 25 MG TAB PO SCH (21:34)
[2018-06-19] MEDS: PATCH REMOVAL 1 EA PATCH TD SCH (23:15)
[2018-06-20] MEDS: MUPIROCIN 2% 22 GM OINT NS SCH ×2 (00:38→08:38)
[2018-06-20] MEDS: DABIGATRAN ETEXILATE MESYL 150 MG CAP PO SCH (08:36)
[2018-06-20] MEDS: DOXYCYCLINE HYCLATE 100 MG CAP/TAB PO SCH (08:36)
[2018-06-20] MEDS: FINASTERIDE 5 MG TAB PO SCH (08:36)
[2018-06-20] MEDS: Trospium Chloride [Sanctura] 20 MG PO SCH (08:37)
[2018-06-20] MEDS: TRIAMCINOLONE 0.1% 15 GM CRTUBE TP SCH (08:38)
[2018-06-20] MEDS: LIDOCAINE 4%/MENTHOL 1% PATCH TD SCH (08:39)
[2018-06-20] MEDS: ACETAMINOPHEN 500 MG TAB PO PRN (08:54)
[2018-06-20] MEDS: traMADol 50 MG TAB PO PRN ×2 (08:54→14:56)
--- NOTE | 2018-06-20 09:10 | NEUSURGPN ---
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 Velasquez for and has not recommended surgery for in the past. He has b/b incontinence that has been persistent and stable x 3-4 years. Flexion/ext x-rays showed no instability at L4/5, there for have recommended an L4/5 laminectomy -Hx of pulmonary fibrosis-Will optimize pulmonary function with a short stay in rehab prior to surgery per piulmonary/medicine recommendations. Patient should follow up with Dr. Núñez in 2-3 weeks to discuss surgical planning. -Discussed with Dr. Núñez Subjective: No new complaints today, awaiting rehab placement Objective: NAD A&Ox3 MAEx4 5/5 and equal in BUE and BLE ambulating with walker today. - Physician Discussed Patient with Dr.: Núñez Neurosurgery Physical Exam - Vitals, I&O, Labs I and O 06/19/18 06/20/18 06/21/18 05:59 05:59 05:59 Intake Total 1050 500 Output Total 700 400 Balance 350 100 Intake: Oral (ml) 1050 500 Output: Urine (ml) 700 400 Diapers/Briefs 400 400 Toilet 150 Urinal 150 Other: Number of Voids Diapers/Briefs 2 1 Toilet 1 2 Number of Stools Diapers/Briefs 1 Toilet 1 1 Vital Signs Temp Pulse Resp BP Pulse Ox 36.6 C 93 18 140/76 H 97 06/20/18 07:42 06/20/18 07:42 06/20/18 07:42 06/20/18 08:58 06/20/18 07:42 ICD10 Worksheet Patient Problems: Problems Problem Status Onset Forearm laceration Acute Fracture of transverse process of lumbar vertebra Acute Fracture of vertebra, compression Acute Loss of balance Acute Multiple rib fractures Acute Skin tear of right hand without complication Acute Cellulitis Acute
--- NOTE | 2018-06-20 10:31 | PDIAF ---
- Diagnosis Diagnosis: Fall, Spinal Stenosis Code Status: Full Code - Medication Management Discharge Medications: electronically signed and located in the Home Medication List. - Orders Services needed: Registered Nurse, Certified Twister Tender, Physical Therapy, Occupational Therapy Isolation Type: Contact Isolation Diet Recommendation: no restrictions on diet - Follow Up Care Current Providers and Referrals: Chapito Salinas MD [Medical Doctor] - As per Instructions Jose Ramon Núñez MD [Medical Doctor] - (2 weeks)
--- NOTE | 2018-06-20 10:34 | PDIAF ---
- Diagnosis Diagnosis: Fall, Spinal Stenosis Code Status: Full Code - Medication Management Discharge Medications: electronically signed and located in the Home Medication List. - Orders Services needed: Registered Nurse, Certified Head Miller, Physical Therapy, Occupational Therapy Isolation Type: Contact Isolation Oxygen: 2L Diet Recommendation: no restrictions on diet - Follow Up Care Current Providers and Referrals: Jose Ramon Núñez MD [Medical Doctor] - (2 weeks) Chapito Salinas MD [Medical Doctor] - As per Instructions
[2018-06-20 12:29] VITALS: BP 161/92
--- NOTE | 2018-06-20 12:30 | PDIAF ---
- Diagnosis Diagnosis: Fall, Spinal Stenosis Code Status: Full Code - Medication Management Discharge Medications: electronically signed and located in the Home Medication List. - Orders Services needed: Registered Nurse, Certified Chief Investment Officer, Physical Therapy, Occupational Therapy Isolation Type: Contact Isolation Oxygen: 2L Diet Recommendation: no restrictions on diet Date to Remove Sutures/Ossian: 06/24/18 - Follow Up Care Current Providers and Referrals: Jose Ramon Núñez MD [Medical Doctor] - (2 weeks) Chapito Salinas MD [Medical Doctor] - As per Instructions
--- NOTE | 2018-06-20 13:19 | GDS ---
[f rep st] DISCHARGE SUMMARY FINAL DIAGNOSES: 1. Fall. 2. Weakness. 3. Peripheral neuropathy. 4. Rib fractures, right 10th rib, left 11th and 12th ribs. 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 6. Compression fracture of T12, L5. 7. Transverse process fracture of L1, 2 and 3. 8. Interstitial lung disease. 9. Atrial fibrillation, on Pradaxa. 10. Chronic cerebrovascular accident with left-sided weakness. HOSPITAL COURSE: This is an 88-year-old man who presented after a fall. He notes that he has had multiple falls in the last half year. He was found to have multiple injuries. Was seen by the trauma service. He was also seen by Neurosurgery, who recommends a laminectomy given his L4-5 stenosis which may be causing some imbalance issues. He is also noted to have bowel and bladder incontinence; however, given the duration of this (around 1 year) it is not felt that laminectomy will help these symptoms. We discussed options of doing a laminectomy while he is here versus discharge to [facility]. Given his rib fractures, I think rehabilitation prior to spinal surgery is appropriate. He has been accepted to [facility] for ongoing physical therapy and occupational therapy. He is anticoagulated on Pradaxa. This will need to be held prior to his surgery. He will follow up with Dr. Núñez in approximately 2 weeks to schedule surgery. Otherwise, he will follow up with Dr. Penny at [facility] for his interstitial lung disease. He complained of dysuria on the day of discharge. UA showed microscopic hematuria. This should be rechecked soon, and if it continues to be positive he will need a referral to urology. DISPOSITION: He is discharged to [facility] in stable condition. BILLING: I spent more than 30 minutes on the day of discharge coordinating care. /[id number]/MODL MTDD
--- NOTE | 2018-06-20 14:05 | ASMTLACE ---
LACE Length of stay for Answers: 4-6 days current admission Acuity / Level of Answers: Yes Care: Did the patient have an inpatient admission? Comorbidities - select Answers: Cerebrovascular disease all that apply (CVA, TIA, aneurysms, vasc ular dementia) History of falls Other Notes: Spinal stenosis; HTN # of Emergency department Answers: 1-2 visits in the last 6 months Score: 13 Date Signed: 06/20/2018 02:03 PM Electronically Signed By:NICK De Leon
--- NOTE | 2018-06-20 14:07 | ASMTCMCOM ---
CM Note CM Note Notes: Pt medically stable for d/c to [facility] [place]. Orders sent in [employer]. Ariadna with [facility] scheduled wc transport for this afternoon. Pt Kala updated. WILLA Alonso to call report. Date Signed: 06/20/2018 02:04 PM Electronically Signed By:NICK De Leon
--- NOTE | 2018-06-20 15:56 | ASDISCHSUM ---
Discharge Information Plan Status:SNF Medically Cleared to Leave: Discharge Date:06/20/2018 03:10 PM CM D/C Disposition: ADT D/C Disposition:Home, Routine, Self-Care Projected Discharge Date:06/20/2018 11:00 AM Transportation at D/C: Discharge Delay Reason: Follow-Up Date:06/20/2018 11:00 AM Discharge Slot: Final Diagnosis: Placement Information Referral Type:*Senior Living/SNF Referral ID:[id number] Provider Name:Jo Dye Address 1:[address] Phone Number: Address 2: Fax Number: City:[place] Selection Factors: State:[place] Patient Contact Information Contact Name:SARAH Relationship: Address:[address] City:[place] Alternate Phone: State/Zip Code:[place] [address] Email: Financial Information Financial Class:Medicare Primary Plan Desc:MEDICARE INPATIENT Primary Plan Number:[id number] Secondary Plan Desc:[employer] PPO [employer] Secondary Plan Number:[id number] Assessment Information LACE LACE Length of stay for Answers: 4-6 days current admission Acuity / Level of Answers: Yes Care: Did the patient have an inpatient admission? Comorbidities - select Answers: Cerebrovascular disease all that apply (CVA, TIA, aneurysms, vasc ular dementia) History of falls Other Notes: Spinal stenosis; HTN # of Emergency department Answers: 1-2 visits in the last 6 months Score: 13 Date Signed: 06/20/2018 02:03 PM Electronically Signed By:NICK De Leon [facility] CM Progress Note CM Note CM Note Notes: Pt was admitted with multiple rib fx and TP fx after a fall. Per his , he has a hx of falls (~8 falls in 8 months). They moved to [facility] in March. Pt is currently on bed rest. A neurology consult and PT/OT evals are pending, [facility] has cleared. Pt has had [facility] in the past. CM will follow for any d/c needs. D/C plan: TBD Date Signed: 06/16/2018 12:14 PM Electronically Signed By:NICK Smith [facility] CM Progress Note CM Note CM Note Notes: Pt has been evaluated by PT/OT; they have both recommended In-Patient Rehab. An order has been made by Dr Mckay. D/C Plan: Possibly In-Pt Rehab. Date Signed: 06/17/2018 11:09 AM Electronically Signed By:Sheryl Hoang [facility] CM Progress Note CM Note CM Note Notes: CM discussed case with WILLA Saucedo. Patient pending InPt rehab consult, we are waiting for a response from [facility]. Neurosurgery is recommending surgery after rehab for strengthening CM to follow. D/C Plan: InPt rehab vs. SNF. Date Signed: 06/18/2018 05:00 PM Electronically Signed By:Polly Gann [facility] CM Progress Note CM Note CM Note Notes: Patient and his Kala decided that they'd like patient to d/c to SNF and have rehab before deciding whether or not to proceed w neurosurgery. toured [facility] and [facility] and chose [facility]. Referral sent and accepted. Anticipate d/c tomorrow, midday ( can be here after 11AM). Case Management will follow. Current CM Discharge plan: [facility] Date Signed: 06/19/2018 03:00 PM Electronically Signed By:Melisa Pratt RN [facility] CM Progress Note CM Note CM Note Notes: Pt medically stable for d/c to [facility] [place]. Orders sent in [employer]. Ariadna with [facility] scheduled wc transport for this afternoon. Pt Kala updated. WILLA Alonso to call report. Date Signed: 06/20/2018 02:04 PM Electronically Signed By:NICK De Leon Intervention Information Intervention Type:*GEORGE-Signed Date of Service:06/16/2018 12:31 PM Patient Type:Observation Staff Member:Lisa Talamantes Hours: Discipline: Severity: Comment: Intervention Type:*IM-Signed Date of Service:06/20/2018 10:03 AM Patient Type:Inpatient Staff Member:Lisa Talamantes Hours: Discipline: Severity: Comment:
== END 2018-06-20 15:10 | DRG 184 ==
LOC: EDUNIT# → F3N 06-16 01:07 → OBSVTOIN 06-17 12:13
PROVIDERS: ADMIT Student in an Organized Health Care Education/Training Program; ATTEND Student in an Organized Health Care Education/Training Program
PROC: 0HQFXZZ Repair Right Hand Skin, External Approach (ICD-10-PCS; principal; 2018-06-17)
PROC: 0HQEXZZ Repair Left Lower Arm Skin, External Approach (ICD-10-PCS; principal; 2018-06-17)
DX: S22.42XA Multiple fractures of ribs, left side, initial encounter for closed fracture (principal); S22.31XA Fracture of one rib, right side, initial encounter for closed fracture; S32.019A Unspecified fracture of first lumbar vertebra, initial encounter for closed fracture; S32.029A Unspecified fracture of second lumbar vertebra, initial encounter for closed fracture; S32.039A Unspecified fracture of third lumbar vertebra, initial encounter for closed fracture; S51.812A Laceration without foreign body of left forearm, initial encounter; S61.411A Laceration without foreign body of right hand, initial encounter; W19.XXXA Unspecified fall, initial encounter; Y92.199 Unspecified place in other specified residential institution as the place of occurrence of the external cause; R26.89 Other abnormalities of gait and mobility; I48.91 Unspecified atrial fibrillation; I69.342 Monoplegia of lower limb following cerebral infarction affecting left dominant side; R32 Unspecified urinary incontinence; R15.9 Full incontinence of feces; R31.21 Asymptomatic microscopic hematuria; J84.10 Pulmonary fibrosis, unspecified; G31.84 Mild cognitive impairment of uncertain or unknown etiology; G62.9 Polyneuropathy, unspecified; M48.061 Spinal stenosis, lumbar region without neurogenic claudication; M81.0 Age-related osteoporosis without current pathological fracture; I10 Essential (primary) hypertension; N40.0 Benign prostatic hyperplasia without lower urinary tract symptoms; Z79.01 Long term (current) use of anticoagulants; Z91.81 History of falling; Z86.14 Personal history of Methicillin resistant Staphylococcus aureus infection
CPT/HCPCS: 82435-PO; 82565-PO; 82947-PO; 84132-PO; 84295-PO; 84520-PO; 85014-ER; 92523-GN; 97110-GP; 97116-GP; 97162-GP; 97166-GO; 97530-GO; 97530-GP; 97535-GO; G0378; J1650; Q9967